=== PATIENT | male | born 1950 | race Caucasian/White ===

== ENCOUNTER 2019-05-06 10:23 | Day surgery (SDC) | payer MEDICARE, BC ==
[~2019-05-06] VITALS: Ht 180.3 cm; Wt 102.0 kg
[2019-05-06] VITALS (10 sets, daily range): BP systolic 102–141; BP diastolic 47–67
[2019-05-06] MEDS ORDERED: diphenhydrAMINE 25mg capsule PO PRN (10:45)
[2019-05-06] MEDS ORDERED: normal saline 1,000 ML IV SCH ×2 (10:45→12:51)
[2019-05-06] MEDS ORDERED: DIGO250T77 PO (10:57)
[2019-05-06] MEDS ORDERED: SITA1TBM7 PO (10:57)
[2019-05-06] MEDS ORDERED: ASPI-920 PO (10:57)
[2019-05-06] MEDS ORDERED: ROSU20TA2 PO (10:57)
[2019-05-06] MEDS ORDERED: SENN-202 PO (10:57)
[2019-05-06] MEDS ORDERED: METO25TA6 PO (10:57)
[2019-05-06] MEDS ORDERED: midazolam 2 mg/2 ml injection ONE ×2 (11:03→11:50)
[2019-05-06] MEDS ORDERED: fentaNYL/PF 50MCG/1 ML 2ML syringe ONE (11:03)
[2019-05-06] MEDS ORDERED: LIDOcaine 1% (10mg/ml)w/preservative injection 20ml MDV ONE (11:03)
[2019-05-06] MEDS ORDERED: iohexol 350MG/ML 100ml bottle IV ONE (11:04)
[2019-05-06] MEDS ORDERED: iohexol 350 MG/ML 50ML vial IV ONE (11:04)
[2019-05-06 11:13] LABS: BASOPHILS % (AUTO) 0.5 % (0-1); EOSINOPHILS # (AUTO) 0.5 X10'3 (0-0.9); EOSINOPHILS % (AUTO) 4.8 % (0-6); HEMATOCRIT 46.5 % (42.0-52.0); LYMPHOCYTES # (AUTO) 3.3 X10'3 (1.1-4.8); LYMPHOCYTES % (AUTO) 33.2 % (21-51); MEAN CORPUSCULAR HEMOGLOBIN 29.2 PG (27.0-31.0); MEAN CORPUSCULAR HGB CONC 34.5 g/dL (33.0-36.5); MEAN CORPUSCULAR VOLUME 84.7 FL (78-98); MEAN PLATELET VOLUME 8.3 FL (7.4-10.4); MONOCYTES # (AUTO) 0.8 X10'3 (0-0.9); MONOCYTES % (AUTO) 8.2 % (2-12); NEUTROPHILS # (AUTO) 5.4 X10'3 (1.8-7.7); NEUTROPHILS % (AUTO) 53.3 % (42-75); PLATELET COUNT 238 X10'3 (140-440); RED BLOOD COUNT 5.49 X10'6 (4.70-6.10); RED CELL DISTRIBUTION WIDTH 13.8 % (11.5-14.5); WHITE BLOOD COUNT 10.1 X10'3 (4.5-11.0)
[2019-05-06 11:21] LABS: ALBUMIN 4.7 G/DL (3.4-5.0); ANION GAP 12 (8-16); BLOOD UREA NITROGEN 14 MG/DL (7-18); BUN/CREATININE RATIO 13.6 (5.4-32.0); CALCIUM 9.5 MG/DL (8.5-10.1); CHLORIDE 102 MMOL/L (99-107); CREATININE 1.03 MG/DL (0.60-1.10); GLUCOSE 164 MG/DL (70-104); MAGNESIUM 1.8 MG/DL (1.5-2.4); POTASSIUM 4.6 MMOL/L (3.5-5.1); SODIUM 141 MMOL/L (135-145); TOTAL CARBON DIOXIDE 27.3 MMOL/L (24-32); eGFR 72 ML/MIN
[2019-05-06] MEDS ORDERED: proCHLORperazine 10 MG/2 ml inj ONE (11:44)
[2019-05-06] MEDS ORDERED: heparin 1,000unit/ml 10ml vial 10 ML ONE (11:57)
[2019-05-06] MEDS ORDERED: iohexol 350 MG/1 ML 200ml bottle ONE (12:04)
[2019-05-06] MEDS ORDERED: clopidogrel 300mg tablet ONE (12:17)
[2019-05-06] MEDS ORDERED: HYDROcodone/acetaminophen 10/325mg tab PO PRN (12:55)
[2019-05-06] MEDS ORDERED: proCHLORperazine 10 MG/2 ml inj IV PRN (12:55)
[2019-05-06] MEDS ORDERED: HYDROcodone/acetaminophen 5mg/325mg tablet PO PRN (12:55)
[2019-05-06] MEDS ORDERED: ondansetron/PF 4mg/2ml inj IV PRN (12:55)
== END 2019-05-06 17:05 | disposition home or self-care (01) ==
LOC: SSTAY O 10:23
PROVIDERS: ATTEND Internal Medicine Cardiovascular Disease
DX: R94.39 Abnormal result of other cardiovascular function study (principal); I25.10 Atherosclerotic heart disease of native coronary artery without angina pectoris; I10 Essential (primary) hypertension; E78.5 Hyperlipidemia, unspecified; E11.9 Type 2 diabetes mellitus without complications; I47.1 Supraventricular tachycardia; Z85.46 Personal history of malignant neoplasm of prostate; Z90.79 Acquired absence of other genital organ(s); Z72.89 Other problems related to lifestyle; F12.90 Cannabis use, unspecified, uncomplicated; Z79.82 Long term (current) use of aspirin; Z79.899 Other long term (current) drug therapy
CPT/HCPCS: 36415; 80048; 83735; 85025; 85610; 92920; 93005; 93458; 99152; 99153; C1725; C1769; C1874; C1894; C9600; J0780; J1644; J2001; J2250; J3010; J7030; Q0163; Q9967; A4620; A6258; C1760

== ENCOUNTER 2022-06-24 08:01 | Inpatient (IN) | payer MEDICARE, BC ==
[2022-06-23 11:19] LABS: BASOPHILS # (AUTO) 0.1 X10'3 (0-0.2); BASOPHILS % (AUTO) 0.8 % (0-1); EOSINOPHILS # (AUTO) 0.3 X10'3 (0-0.9); EOSINOPHILS % (AUTO) 4.1 % (0-6); LYMPHOCYTES # (AUTO) 2.2 X10'3 (1.1-4.8); LYMPHOCYTES % (AUTO) 31.5 % (21-51); MEAN CORPUSCULAR HEMOGLOBIN 28.2 PG (27.0-31.0); MEAN CORPUSCULAR HGB CONC 32.8 g/dL (33.0-36.5); MEAN CORPUSCULAR VOLUME 85.9 FL (78-98); MEAN PLATELET VOLUME 8.3 FL (7.4-10.4); MONOCYTES # (AUTO) 0.6 X10'3 (0-0.9); MONOCYTES % (AUTO) 8.8 % (2-12); NEUTROPHILS # (AUTO) 3.8 X10'3 (1.8-7.7); NEUTROPHILS % (AUTO) 54.8 % (42-75); PRE OP HEMATOCRIT 44.9 % (42.0-52.0); PRE OP HEMOGLOBIN 14.7 g/dL (14.0-17.9); PRE OP PLATELET COUNT 190 X10'3 (140-440); RED BLOOD COUNT 5.22 X10'6 (4.70-6.10); RED CELL DISTRIBUTION WIDTH 15.1 % (11.5-14.5)
[2022-06-23 11:31] LABS: ALBUMIN 4.1 G/DL (3.4-5.0); ALBUMIN/GLOBULIN RATIO 1.2 (1.1-1.5); ALKALINE PHOSPHATASE 63 IU/L (46-116); BLOOD UREA NITROGEN 21 MG/DL (7-18); CALCIUM 9.3 MG/DL (8.5-10.1); CHLORIDE 104 MMOL/L (99-107); PRE OP ALT 25 U/L (30-65); PRE OP ANION GAP 9 (8-16); PRE OP AST 21 U/L (10-37); PRE OP BILIRUB, TOTAL 0.5 MG/DL (0.0-1.0); PRE OP GLUCOSE 184 MG/DL (70-104); PRE OP POTASSIUM 4.2 MMOL/L (3.4-5.1); PRE OP SODIUM 139 MMOL/L (135-145); TOTAL CARBON DIOXIDE 26.3 MMOL/L (24-32); TOTAL PROTEIN 7.4 G/DL (6.4-8.2); eGFR 74 ML/MIN
[2022-06-23 11:57] LABS: HEMOGLOBIN A1C 6.5 % (4.5-6.2)
[2022-06-24] VITALS (15 sets, daily range): BP systolic 105–171; BP diastolic 54–76
[~2022-06-24] VITALS: Ht 180.3 cm; Wt 98.8 kg
[~2022-06-24 08:01] MED LIST: CLOP75TA34 PO; DAPA10TA PO; METO-395 PO; ROSU40TA PO; SITA1TBM7 PO; ceFAZolin inj. 2,000 MG in dextrose 5%-water 100 ML IV ONE; famotidine 20mg tablet PO ONE; nitroPRUSSIDE (NIPRIDE) (200MCG/ML) 100ML Drip IV SCH; phenylephrine inj 50 MG in normal saline 250ml IV solN IV SCH; ringers solution, lacted 1,000 ML IV SCH
[2022-06-24] MEDS ORDERED: ceFAZolin 1000mg inj ONE (09:23)
[2022-06-24] MEDS ORDERED: heparin 10,000 units/1 ML INJ ONE (09:23)
[2022-06-24] MEDS ORDERED: LIDOcaine 1% 30ml preserv. free vial ONE (09:23)
[2022-06-24] MEDS ORDERED: LIDOcaine 1% (10mg/ml) 2ml vial ONE ×2 (09:29→13:17)
[2022-06-24 10:40] LABS: APTT 25 SECONDS (22-32)
[2022-06-24] MEDS ORDERED: fentaNYL/PF 50MCG/1 ML 2ML syringe ONE ×2 (13:35→13:53)
[2022-06-24] MEDS ORDERED: rocuronium 10mg/ml inj IV ONE (14:48)
[2022-06-24] MEDS ORDERED: propofol inj 20 ML IV ONE (14:48)
[2022-06-24] MEDS ORDERED: glycopyrrolate 0.2mg/ml inj ONE (14:48)
[2022-06-24] MEDS ORDERED: dexamethasone sod phosphate 4mg/ml inj. ONE (14:48)
[2022-06-24] MEDS ORDERED: ondansetron/PF 4mg/2ml inj ONE (14:48)
[2022-06-24] MEDS ORDERED: neostigmine methylsulfate 1 MG/ML 10ml vial ONE (14:48)
[2022-06-24] MEDS ORDERED: phenylephrine 10mg/ml inj. ONE (14:54)
[2022-06-24] MEDS ORDERED: ePHEDrine 50MG/ML INJ. ONE (14:54)
[2022-06-24] MEDS ORDERED: heparin 1,000unit/ml 10ml vial 10 ML ONE (14:54)
--- NOTE | 2022-06-24 15:15 | NUR ---
Received from OR via rney, accompanied by Anesthesiologist and report given by Anesthesiologist. PATIENT WAKING UP, C/O PAIN RIGHT NECK SEE EMAR FOR PAIN, V/S WNL, 20G TO LUE, ART LINE RUE, SCD ON, NEURO CHECKS WNL , PERRLA EYES, EQUAL STRENGTHS BUE BLE , TONGUE MIDLINE, EMELIA TO RIGHT NECK CDI MINIMAL OUTPUT SCANT EDEMA TO SURGICAL SIGHT DRESSING CDI.
[2022-06-24] MEDS ORDERED: sodium chloride 0.45% 1,000 ML IV SCH (15:20)
[2022-06-24] MEDS ORDERED: potassium Cl 20 mEq SR tablet PO PRN (15:20)
[2022-06-24] MEDS ORDERED: potassium Cl 40MEQ/270ML bag 250 ML IV PRN (15:20)
[2022-06-24] MEDS ORDERED: naloxone 0.4 mg/ml inj IV PRN (15:20)
[2022-06-24] MEDS ORDERED: potassium Cl 40MEQ/1/2NS 520ml 520 ML IV PRN (15:20)
[2022-06-24] MEDS ORDERED: potassium Cl 20mEq/100mL bag 100 ML IV PRN (15:20)
[2022-06-24] MEDS ORDERED: HYDROcodone/acetaminophen 10/325mg tab PO PRN ×3 (15:20)
[2022-06-24] MEDS ORDERED: magnesium 4gm in 100ml NS 100 ML IV PRN (15:20)
[2022-06-24] MEDS ORDERED: acetaminophen 325mg tablet PO PRN (15:20)
[2022-06-24] MEDS ORDERED: magnesium 2GM in 50ml NS 50 ML IV PRN (15:20)
[2022-06-24] MEDS ORDERED: ondansetron/PF 4mg/2ml inj IV PRN ×2 (15:20)
[2022-06-24] MEDS ORDERED: potassium CL 10mEq/100ml bag 100 ML IV PRN (15:20)
[2022-06-24] MEDS ORDERED: morphine 4 MG/ML inj SYRINge ONE ×2 (15:22→15:30)
[2022-06-24] MEDS ORDERED: morphine 4 MG/ML inj SYRINge IV PRN (15:30)
[2022-06-24] MEDS ORDERED: acetaminophen 1,000mg/100ml IV 100 ML IV PRN (15:45)
[2022-06-24] MEDS: meperidine/PF 25mg/ml syringe IV PRN ×2 (15:49→15:54)
[2022-06-24] MEDS ORDERED: ceFAZolin inj. 1,000 MG in dextrose 5%-water 50ml 50 ML IV SCH (16:00)
--- NOTE | 2022-06-24 16:05 | NUR ---
PATIENT A&OX4, C/O PAIN RIGHT NECK SEE EMAR FOR PAIN, V/S WNL, 20G TO LUE, ART LINE RUE, SCD ON, NEURO CHECKS WNL , PERRLA EYES, EQUAL STRENGTHS BUE BLE , TONGUE MIDLINE, DRESSING TO RIGHT NECK WITH SOME SCANT BREAK THROUGH BLEEDING, EMELIA W/ MINIMAL OUTPUT SCANT EDEMA TO SURGICAL SIGHT . PATIENT TAKEN TO ROOM WITH ALL BELONGINGS AND HOOKED UP TO MONITORS IN ROOM AND GIVEN CALL LIGHT, REPORT GIVEN TO RN WHO HAS TAKEN OVER PATIENT CARE.
[2022-06-24] MEDS: niCARDipine-NS 40mg/200ml IVPB 200 ML IV PRN ×2 (17:06→22:35)
[2022-06-24] MEDS: ceFAZolin/D5W- 1GM premix 50 ML IV SCH (18:59)
--- NOTE | 2022-06-24 19:00 | NUR ---
Patient in room CICU 2013. I have received report from Ap MOORE and had the opportunity to ask questions and assume patient care.
[2022-06-24] MEDS: mupirocin 2% nasal ointment 1gm UD NS SCH (19:35)
[2022-06-24] MEDS ORDERED: atorvastatin 10mg tablet PO SCH (21:00)
[2022-06-25] VITALS (11 sets, daily range): BP systolic 103–156; BP diastolic 54–80
[2022-06-25] MEDS: ceFAZolin/D5W- 1GM premix 50 ML IV SCH ×2 (01:03→09:41)
[2022-06-25 02:38] LABS: BASOPHILS % (AUTO) 0.3 % (0-1); EOSINOPHILS % (AUTO) 0 % (0-6); HEMATOCRIT 37.2 % (42.0-52.0); HEMOGLOBIN 12.7 g/dl (14.0-17.9); LYMPHOCYTES # (AUTO) 0.9 X10'3 (1.1-4.8); MEAN CORPUSCULAR HEMOGLOBIN 28.8 PG (27.0-31.0); MEAN CORPUSCULAR VOLUME 84.6 FL (78-98); MONOCYTES # (AUTO) 0.6 X10'3 (0-0.9); MONOCYTES % (AUTO) 6.3 % (2-12); NEUTROPHILS # (AUTO) 7.8 X10'3 (1.8-7.7); NEUTROPHILS % (AUTO) 83.4 % (42-75); PLATELET COUNT 166 X10'3 (140-440); RED CELL DISTRIBUTION WIDTH 14.7 % (11.5-14.5); WHITE BLOOD COUNT 9.3 X10'3 (4.5-11.0)
[2022-06-25 02:51] LABS: ALBUMIN 3.4 G/DL (3.4-5.0); ANION GAP 11 (8-16); BLOOD UREA NITROGEN 21 MG/DL (7-18); BUN/CREATININE RATIO 22.6 (5.4-32.0); CALCIUM 8.5 MG/DL (8.5-10.1); CHLORIDE 104 MMOL/L (99-107); CREATININE 0.93 MG/DL (0.60-1.10); GLUCOSE 196 MG/DL (70-104); POTASSIUM 4.6 MMOL/L (3.5-5.1); SODIUM 137 MMOL/L (135-145); TOTAL CARBON DIOXIDE 21.7 MMOL/L (24-32); eGFR 80 ML/MIN
--- NOTE | 2022-06-25 07:07 | NUR ---
Problems reprioritized. Patient report given, questions answered & plan of care reviewed with Bj MOORE.
[2022-06-25] MEDS ORDERED: metoprolol tartrate 12.5mg (1/2 tablet) PO SCH (08:00)
[2022-06-25] MEDS ORDERED: clopidogrel 75mg tablet PO SCH (08:00)
[2022-06-25] MEDS ORDERED: aspirin 81mg tab.chew PO SCH (08:30)
[2022-06-25] MEDS: mupirocin 2% nasal ointment 1gm UD NS SCH (09:23)
== END 2022-06-25 12:10 | disposition home or self-care (01) | DRG 39 ==
LOC: PAS IN 08:01 → CICU 2S 16:18
PROVIDERS: ADMIT Thoracic Surgery (Cardiothoracic Vascular Surgery); ATTEND Thoracic Surgery (Cardiothoracic Vascular Surgery)
PROC: 03UK0KZ Supplement Right Internal Carotid Artery with Nonautologous Tissue Substitute, Open Approach (ICD-10-PCS; 2022-06-24)
PROC: 03CK0ZZ Extirpation of Matter from Right Internal Carotid Artery, Open Approach (ICD-10-PCS; principal; 2022-06-24 13:35)
DX: I65.21 Occlusion and stenosis of right carotid artery (principal)
CPT/HCPCS: 36415; 71045; 71046; 80048; 80053; 82948; 83036; 85025; 85610; 85730; 86885; 86900; 86901; 87081; 88300; 93005; A4615; A4618; A6250; A6258; A6402; A6449; A7000; C1768; G0378; J0131; J0690; J1100; J1644; J2175; J2270; J2370; J2405; J2704; J2710; J3010; J3490; J7050; J7060; J7120